=== PATIENT | male | born 1990 | race African-American/Black ===

== ENCOUNTER 2016-11-14 22:11 | Emergency (ER) | payer SELFPAY ==
[2016-11-14] MEDS ORDERED: DIPH/PERTUSS(ACELL)/TETANUS VAC/PF 0.5 ML SYR (>=10YO) IM ONE (23:08)
[2016-11-14] MEDS ORDERED: LIDOCAINE 1% INJ-PF (10 MG/ML) 30 ML SDV INJ ONE (23:09)
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
[2016-11-15 00:38] VITALS: BP 129/77
== END 2016-11-15 00:41 | disposition home or self-care (01) ==
LOC: ER 22:11
PROC: 0HQ3XZZ Repair Left Ear Skin, External Approach (ICD-10-PCS; principal; 2016-11-14)
PROC: 0HQ1XZZ Repair Face Skin, External Approach (ICD-10-PCS; 2016-11-14)
DX: S01.112A Laceration without foreign body of left eyelid and periocular area, initial encounter (principal); S01.312A Laceration without foreign body of left ear, initial encounter; X99.9XXA Assault by unspecified sharp object, initial encounter
CPT/HCPCS: 90715; 99282

== ENCOUNTER 2017-06-30 17:41 | Emergency (ER) | payer SELFPAY ==
[2017-06-30] MEDS ORDERED: PENICILLIN V POTASSIUM 500 MG TABLET PO ONE (18:55)
[2017-06-30] MEDS ORDERED: LIDOCAINE 2% VISCOUS SOLN 20 ML UDCUP PO ONE (18:55)
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
== END 2017-06-30 19:29 | disposition home or self-care (01) ==
LOC: ER 17:41
DX: K02.9 Dental caries, unspecified (principal); K08.89 Other specified disorders of teeth and supporting structures; R68.84 Jaw pain; R22.0 Localized swelling, mass and lump, head; F17.210 Nicotine dependence, cigarettes, uncomplicated; I10 Essential (primary) hypertension
CPT/HCPCS: 99406; 99282; J3490